=== PATIENT | female | born 1995 | race Caucasian/White ===

== ENCOUNTER 2025-01-06 10:55 | Outpatient (CLI) | payer OTHER, SELFPAY | END 2025-01-06 10:56 | disposition home or self-care (01) | PROVIDERS: PCP Family Medicine; Visit Provider Family Medicine | DX: O02.1 Missed abortion (principal) | CPT/HCPCS: 86850; 86900 ==

== ENCOUNTER 2025-01-30 07:20 | Emergency (ER) | payer SELFPAY ==
[2025-01-30 07:36] VITALS: BP 99/80; PULSE 119; RESP 16; TEMP 36.8; O2SAT 97; BMI 28.8
--- NOTE | 2025-01-30 08:09 | ED_ITS ---
HPI - 2 General: Chief complaint: Vaginal Bleeding Stated complaint: lower ab pains back pain Time Seen by Provider: 01/30/25 07:34 History of Present Illness: 29-year-old female who presents to the e mergency room complaining of vaginal bleeding. 3 weeks ago patient had a spontaneous miscarriage at approximately 9 weeks gestation. She is continue to follow-up with her OB. Patient reports having a fever overnight up to 100.6. Associated symptoms: Deny abdominal pain or dysuria Related Data Home Medications ?Medication ?Instructions ?Recorded ?Confirmed [id number] 250 1 tab PO Q6H PRN He adache 01/30/25 01/30/25 mg-250 mg-65 mg tablet (Excedrin Migraine) loratadine 10 mg tablet (Claritin) 10 mg PO DAILY 01/0401/30/25 vit no.133-ferrous 1 tab PO DAILY 01/30/25 fumarate 28 mg-folic acid 800 mcg tablet () Previous Rx's ?Medication ?Instructions ?Recorded amoxicillin 875 mg-potassium 1 tab PO BID #14 tabs clavulanate 125 mg tablet Allergies Allergy/AdvReac Type Severity Reaction Status Date / Time No Known Allergies Allergy Unverified 02/05/23 09:02 Review of Systems 2 Const: Denies: fever(s) or chills Card: Denies: chest pain Resp: Denies: dyspnea GI: Denies: abdominal pain : Denies: dysuria, urinary frequency or urinary urgency Musc: Denies: neck pain or back pain Skin/Breast: Denies: rash PFSH ED 2 PFSH: Medical History No significant past medical history Surgical History No significant past surgical history Family History Mother Diabetes Social History Smoking and tobacco/nicotine status: never used tobacco/nicotine Alcohol intake: never Substance/Drug Use: never Marital status: Number of children: 0 Female Reproductive History: Para: 0 Spontaneous abortions: No Physical Exam 2 Const: COMMON NORMALS: no acute distress GENERAL APPEARANCE: cooperative and comfortable ORIENTATION/CONSCIOUSNESS: Yes awake, Yes oriented to person, Yes oriented to place and Yes oriented to time HENMT: COMMON NORMALS: normocephalic, atraumatic and hearing grossly normal bilaterally HEAD & SCALP: normocephalic and atraumatic Resp: COMMON NORMALS: normal respiratory effort, No retractions, No use of accessory muscles and clear to auscultation bilaterally AUSCULTATION: clear to auscultation bilaterally Cardio: COMMON NORMALS: regular rate, regular rhythm and No murmurs present (Cardio) RATE: regular rate RHYTHM: regular rhythm GI: COMMON NORMALS: Soft to palpation and No hepatosplenomegaly present A USCULTATION: Yes normoactive bowel sounds PALPATION: Yes Soft to palpation, No Tenderness to palpation present (GI), No Guarding due to palpation present (GI) and Yes No hepatosplenomegaly present : OTHER: Pelvic exam done with nurse present. Patient placed in dorsolithotomy position. Speculum introduced cervix visualized cervix moderate blood in the vaginal canal no active bleeding from the cervical os. No products of conceptions in the os cultures done. Extremity: COMMON NORMALS: normal to inspection, capillary refill normal, no clubbing, cyanosis or edema, no calf tenderness and no pedal edema Neuro: SENSORIUM/ORIENTATION: Yes oriented to person, Yes oriented to place and Yes oriented to time Skin: COMMON NORMALS: no rashes or lesions noted GENERAL SKIN EXAM: no rashes or lesions noted Course 2 Vital Signs: Vital signs: Vital Signs Temperature 98.2 F 01/30/25 07:36 Pulse Rate 82 01/30/25 13:11 Respiratory Rate 16 01/30/25 07:36 Blood Pressure 105/82 01/30/25 13:11 Pulse Oximetry 99 01/30/25 13:11 Oxygen Delivery Me thod Room Air 01/30/25 07:36 MDM - OB/Uterine Contractions Medical Decision Making Patient reports fever will treat for late presenting endometritis started on Augmentin 875 1 p.o. twice daily have her follow-up with her primary head grower. Her hemoglobin is stable white count is normal and her beta-hCG is down to 9.16 Lab Data 01/30/25 08:16 01/30/25 08:16 Radiology Impressions Pelvic/Transvag US 01/30/25 08:44 IMPRESSION: 1. Fibroid uterus unchanged compared to previous. 2. Slightly heterogeneous endometrium measuring 6 mm although no evidence of hematoma or fluid collection 3. Multi follicular ovaries bilaterally. 4. Normal ovarian vascularity. Laboratory Results WBC 4.86 10^3/uL (3.29-11.43) 01/30/25 08:16 RBC 4.11 10^6/uL (3.85-5.65) 01/30/25 08:16 Hgb 12.70 g/dL (11.27-16.99) 01/30/25 08:16 Hct 38.9 % (36-47) 01/30/25 08:16 MCV 94.6 fl (85-98) 01/30/25 08:16 MCH 30.9 pg (27-33) 01/30/25 08:16 MCHC 32.6 g/dL (30-55) 01/30/25 08:16 RDW 13.1 % (12.1-15.1) 01/30/25 08:16 Plt Count 210 10^3/cmm (157-399) 01/30/25 08:16 MPV 9.5 fL (7.4-10.4) 01/30/25 08:16 Neut % (Auto) 68.9 % 01/30/25 08:16 Lymph % (Auto) 20.0 % 01/30/25 08:16 [place]win % (Auto) 9.9 % 01/30/25 08:16 Eos % (Auto) 0.2 % 01/30/25 08:16 Baso % (Auto) 0.6 % 01/30/25 08:16 Neut # (Auto) 3.35 10^3/uL (1.8-7.7) 01/30/25 08:16 Lymph # (Auto) 1.0 10^3/uL (0.8-4.8) 01/30/25 08:16 Irwin # (Auto) 0.5 10^3/uL (0.2-0.9) 01/30/25 08:16 Eos # (Auto) 0.0 10^3/uL (0.0-0.8) 01/30/25 08:16 Baso # (Auto) 0.0 10^3/uL (0.0-0.1) 01/30/25 08:16 Nucleated RBC % (auto) 0 % 01/30/25 08:16 Nucleated RBCs # 0.0 /100WBC 01/30/25 08:16 Sodium 139 mmol/L (136-145) 01/30/25 08:16 Potassium 4.2 mmol/L (3.5-5.1) 01/30/25 08:16 Chloride 101 mmol/L (98-107) 01/30/25 08:16 Carbon Dioxide 25 mmol/L (22-29) 01/30/25 08:16 Anion Gap 17.2 (5-19) 01/30/25 08:16 BUN 11 mg/dL (6-20) 01/30/25 08:16 Creatinine 0.8 mg/dL (0.5-0.9) 01/30/25 08:16 GFR Calculation 83.7 mL/min (90-130) L 01/30/25 08:16 Glucose 115 mg/dL (65-115) 01/30/25 08:16 Calculated Osmolality 288 mOsm/kg (285-295) 01/30/25 08:16 Lactic Acid 0.8 mmol/L (0.5-2.2) 01/30/25 08:16 Calcium 8.9 mg/dL (8.5-10.5) 01/30/25 08:16 Total Bilirubin 0.2 mg/dL (0.15-1.2) 01/30/25 08:16 AST 18 U/L (0-32) 01/30/25 08:16 ALT 17 U/L (0-33) 01/30/25 08:16 Alkaline Phosphatase 74 U/L (35-105) 01/30/25 08:16 Total Protein 7.0 g/dL (6.6-8.7) 01/30/25 08:16 Albumin 4.2 g/dL (3.5-5.2) 01/30/25 08:16 Globulin 2.8 g/dL (1.3-4.6) 01/30/25 08:16 Ser , Semi-Qnt 9.16 mIU/mL 01/30/25 08:16 Urine Color Yellow (Yellow) 01/30/25 09:40 Urine Appearance Clear (CLEAR) 01/30/25 09:40 Urine pH 5 (5-7) 01/30/25 09:40 Ur Specific [place] 1.010 (1.005-1.030) 01/30/25 09:40 Urine Protein Trace (Negative) H 01/30/25 09:40 Urine Glucose (UA) Norm (Normal) 01/30/25 09:40 Urine Ketones 1+ (Negative) H 01/30/25 09:40 Urine Blood 3+ (Negative) A 01/30/25 09:40 Urine Nitrate Negative (Negative) 01/30/25 09:40 Urine Bilirubin Neg (Negative) 01/30/25 09:40 Urine Urobilinogen Neg mg/dL (Negative) 01/30/25 09:40 Ur Leukocyte Esterase Negative (Negative) 01/30/25 09:40 Urine RBC >100 /hpf (0-2) H 01/30/25 09:40 Urine WBC 0-5 /hpf (0-5) 01/30/25 09:40 Ur Squamous Epith Cells 0-5 /hpf (0-5) 01/30/25 09:40 Amorphous Sediment Not Reportable 01/30/25 09:40 Urine Bacteria None seen /hpf (NONE) 01/30/25 09:40 Hyaline Casts 0-4 /lpf H 01/30/25 09:40 All radiology interpretation(s) finalized by discharge Discharge Plan Discharge Patient Disposition: Home Clinical Impression: Endometritis Condition: Stable Prescriptions: New amoxicillin-pot clavulanate 875-125 mg tablet 1 tab PO BID Qty: 14 0RF No Action Excedrin Migraine 250-250-65 mg Tablet 1 tab PO Q6H PRN (Reason: Headache) loratadine [Claritin] 10 mg Tablet 10 mg PO DAILY 28-800 mg-mcg Tablet 1 tab PO DAILY Discharge Orders: Discharge ED (Routine); Ordered 01/30/25 Ordered By: Shree Carbajal Referrals: Xenia Mcghee DO [Primary Care Provider] - Discharge Diet: Usual diet Discharge Activity: Increase activity as tolerated Patient Instructions: Opioid Safety, Pain Management Activity Restrictions/Additional Instructions: Thank you for choosing [facility] for your healthcare needs today. It is very important that you follow up as instructed or that you return to the Emergency Department should you have concerns or if your condition changes or worsens in any way. You are seen in the emergency room with complaints of continued vaginal bleeding and low fever. Recommend starting oral antibiotics 1 pill twice a day for a week. Cultures were done today. Follow-up with your OB doctor within the next 10 to 14 days Print Language: Azeri Coding Level of Care Code ED Marketing Technologist for Elyssa Zelaya
[2025-01-30 08:27] LABS: Basophils % 0.6 %; Eosinophils % 0.2 %; Hematocrit 38.9 % (36-47); Mean Corpuscular HGB Conc 32.6 g/dL (30-55); Mean Corpuscular Hemoglobin 30.9 pg (27-33); Mean Corpuscular Volume 94.6 fl (85-98); Mean Platelet Volume 9.5 fL (7.4-10.4); Monocytes # 0.5 10^3/uL (0.2-0.9); Monocytes % 9.9 %; Neutrophils # 3.35 10^3/uL (1.8-7.7); Neutrophils % 68.9 %; Nucleated Red Blood Cells % 0 %; Platelet Count 210 10^3/cmm (157-399); Red Blood Count 4.11 10^6/uL (3.85-5.65); Red Cell Distribution Width 13.1 % (12.1-15.1); White Blood Count 4.86 10^3/uL (3.29-11.43)
--- NOTE | 2025-01-30 08:44 | US_ITS ---
WS: [id number] ULTRASOUND PELVIS TECHNIQUE: Transabdominal and transvaginal. ULTRASOUND PELVIS TECHNIQUE: Transabdominal. CLINICAL INFORMATION: 3 wks post micarraige - fever, abd pain cramping LMP: : No. COMPARISON: None. FINDINGS: Uterus Size: 8.0 cm x 5.0 cm x 5.0 cm. Masses: 3 uterine leiomyomas unchanged compared to previous Endometrium: Has a normal appearance Endometrium thickness: 0.6 cm. Adnexa: Multi follicular ovaries bilaterally. Dominant RIGHT follicle measuring 13 mm Right ovary size: 1.8 cm x 2.8 cm x 2.3 cm. Right ovary volume: 6.1 ccm3. Left ovary size: 2.8 cm x 2.4 cm x 2.7 cm. Left ovary volume: 9.3 ccm3 Free fluid: No significant free fluid Other findings: None. US/US pelv w/transvag [id number] IMPRESSION: 1. Fibroid uterus unchanged compared to previous. 2. Slightly heterogeneous endometrium measuring 6 mm although no evidence of h ematoma or fluid collection 3. Multi follicular ovaries bilaterally. 4. Normal ovarian vascularity.
[2025-01-30 08:45] LABS: HCG Quantitative 9.16 mIU/mL
[2025-01-30 08:56] LABS: Alanine Aminotransferase 17 U/L (0-33); Albumin Level 4.2 g/dL (3.5-5.2); Alkaline Phosphatase 74 U/L (35-105); Aspartate Amino Transferase 18 U/L (0-32); Blood Urea Nitrogen 11 mg/dL (6-20); Calcium 8.9 mg/dL (8.5-10.5); Carbon Dioxide 25 mmol/L (22-29); Chloride 101 mmol/L (98-107); Globulin 2.8 g/dL (1.3-4.6); Glomerular Filtration Rate 83.7 mL/min (90-130); Glucose 115 mg/dL (65-115); Osmolality Calculated 288 mOsm/kg (285-295); Sodium 139 mmol/L (136-145); Total Bilirubin 0.2 mg/dL (0.15-1.2)
[2025-01-30 08:57] LABS: Anion Gap 17.2 (5-19); Potassium 4.2 mmol/L (3.5-5.1)
[2025-01-30 09:00] LABS: Lactic Sepsis W/Reflex 0.8 mmol/L (0.5-2.2)
[2025-01-30 10:38] LABS: Bacteria Urine None Seen /hpf; Hyaline Casts Urine 0-4 /lpf; RBC Urine >100 /hpf (0-2); Squamous Epithelial Cell Urine 0-5 /hpf (0-5); Urine Appearance Clear (CLEAR); Urine Color Yellow (Yellow); WBC Urine 0-5 /hpf (0-5); pH Urine 5 (5-7)
[2025-01-30 10:39] LABS: Add Urine Culture? Yes; Add Urine Microscopic? YES; Bilirubin Urine Neg (Negative); Blood Urine 3+ (Negative); Glucose Urine UA Norm (Normal); Ketones Urine 1+ (Negative); Leukocyte Esterase Urine Negative (Negative); Nitrate Urine Negative (Negative); Protein Urine Trace (Negative); Urobilinogen Urine Neg (Negative)
[2025-01-30 13:11] VITALS: BP 105/82; PULSE 82; O2SAT 99
== END 2025-01-30 13:12 | disposition home or self-care (01) ==
PROVIDERS: Emergency Provider Family Medicine; PCP Family Medicine
DX: N71.9 Inflammatory disease of uterus, unspecified (principal)
CPT/HCPCS: 36415; 76830; 76856; 80053; 81001; 83605; 84702; 85025; 87040; 87086; 99284

== ENCOUNTER 2025-05-11 09:10 | Outpatient (CLI) | payer SELFPAY ==
[2025-05-13 08:04] LABS: Thyroid Peroxidase Antobodies 2 IU/mL (<9)
== END 2025-05-11 09:11 | disposition home or self-care (01) ==
PROVIDERS: PCP Family Medicine
DX: E22.1 Hyperprolactinemia (principal)
CPT/HCPCS: 36415; 84146; 86376

== ENCOUNTER 2025-06-04 08:51 | Outpatient (CLI) | payer OTHER, SELFPAY ==
[2025-06-04 10:14] LABS: Thyroid Stimulating Hormone 1.76 uIU/mL (0.27-4.20)
== END 2025-06-04 08:52 | disposition home or self-care (01) ==
PROVIDERS: PCP Family Medicine
DX: E03.9 Hypothyroidism, unspecified (principal)
CPT/HCPCS: 36415; 84443

== ENCOUNTER 2025-06-12 08:55 | Outpatient (CLI) | payer OTHER, SELFPAY | END 2025-06-12 08:56 | disposition home or self-care (01) | PROVIDERS: Pediatrics; PCP Family Medicine; Visit Provider Obstetrics & Gynecology | DX: E22.1 Hyperprolactinemia (principal) | CPT/HCPCS: 36415; 84146 ==

== ENCOUNTER 2025-06-15 16:14 | Outpatient (CLI) | payer OTHER, SELFPAY | END 2025-06-15 16:15 | disposition home or self-care (01) | PROVIDERS: PCP Family Medicine; Visit Provider Obstetrics & Gynecology | DX: Z87.59 Personal history of other complications of pregnancy, childbirth and the puerperium (principal) | CPT/HCPCS: 36415; 84144 ==